=== PATIENT | male | born 1960 | race Two or more races ===

== ENCOUNTER 2022-10-16 17:48 | Emergency (ER) | payer MEDICARE, MEDICAID, SELFPAY ==
--- NOTE | ~2022-10-16 | XR_ITS ---
EXAMINATION: XR LUMBOSACRAL SPINE CLINICAL INFORMATION: Low back pain COMPARISON: None available. TECHNIQUE: Three views of the lumbosacral spine. FINDINGS: There is curvature of the lumbar spine to the left. Bone alignment is otherwise normal. No fracture or dislocation. Multilevel degenerative spondylosis. Normal disc spaces. Lower lumbar spine facet arthritis. XR/XR lumbar spine 2-3V IMPRESSION: Scoliosis and degenerative changes.
--- NOTE | ~2022-10-16 | XR_ITS ---
EXAMINATION: XR CERVICAL SPINE CLINICAL INFORMATION: Right-sided neck pain COMPARISON: None available. TECHNIQUE: 3 views of the cervical spine were obtained. FINDINGS: Bone alignment is normal. No fracture or dislocation. Multilevel degenerative spondylosis from C3-C4 to C6-C7. Disc space narrowing at C3-C4 C5-C6 and C6-C7. Prevertebral soft tissues are normal. XR/XR cervical spine 3V IMPRESSION: Degenerative changes.
--- NOTE | 2022-10-16 19:20 | ED_ITS ---
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 patient reports that he has had neck pain mostly right-sided for the last week. The pain radiates up the back of his head his pain is worse with palpation or with turning his head to the side his pain is also worse with raising his right arm over his shoulder he denies any trauma to the head or neck The patient's states that every day he carries a very heavy bag with 1 strep over on the side of the patient's pain he takes ibuprofen 800 mg with some improvement in his symptoms denies any numbness, tingling, weakness no other complaints or concerns at this time <Wilmer Garcia - Last Filed: 10/16/22 22:55> Related Data Home medications: Previous Rx's Medication Instructions Recorded methocarbamol 750 mg tablet 750 mg PO QID PRN muscle spasm #20 10/16/22 tabs <AMAYA Sebastian - Last Filed: 10/16/22 19:26> Allergies/adverse reactions: Allergies Allergy/AdvReac Type Severity Reaction Status Date / Time Penicillins Allergy Shortness Verified 10/16/22 19:23 of Breath <AMAYA Sebastian Last Filed: 10/16/22 19:26> Review of Systems Constitutional: Constitutional: Denies chills, Denies fever(s), Reports headache(s) and Denies weakness <Wilmer Garcia - Last Filed: 10/16/22 22:55> Eyes: Eyes: Denies blurry vision <Wilmer Garcia - Last Filed: 10/16/22 22:55> ENT: Denies otalgia, Reports headache(s) and Reports neck pain <Wilmer Garcia - Last Filed: 10/16/22 22:55> Cardiovascular: Cardiovascular: Denies chest pain and Denies dyspnea <Wilmer James Last Filed: 10/16/22 22:55> Respiratory: Respiratory: Denies cough and Denies dyspnea <Wilmer Jamesy - Last Filed: 10/16/22 22:55> Gastrointestinal: Gastrointestinal: Denies abdominal pain, Denies nausea and Denies vomiting <Wilmer Garcia Last Filed: 10/16/22 22:55> Musculoskeletal: Musculoskeletal: Reports back pain, Reports neck pain, Denies numbness and Denies tingling <Wilmer Garcia Last Filed: 10/16/22 22:55> Neurologic: Reports headache(s), Denies numbness, Denies tingling, Denies paresthesias, Denies tremor(s) and Denies weakness <Wilmer Garcia - Last Filed: 10/16/22 22:55> Physical Exam ED Vital Signs: Vital Signs - 24 hr 10/16/22 19:24 Temperature 97.3 F Pulse Rate 70 Respiratory Rate 16 Blood Pressure 151/87 H Pulse Oximetry 97 Oxygen Delivery Method Room Air BMI result Body Mass Index 31.2 <AMAYA Sebastian - Last Filed: 10/16/22 19:26> Vital Signs - 24 hr 10/16/22 19:24 Temperature 97.3 F Pulse Rate 70 Respiratory Rate 16 Blood Pressure 151/87 H Pulse Oximetry 97 Oxygen Delivery Method Room Air BMI result Body Mass Index 31.2 <Wilmer Garcia - Last Filed: 10/16/22 22:55> Const General: healthy appearing, comfortable, no acute distress, alert and awake <Wilmer Garcia Last Filed: 10/16/22 22:55> Nutritional Appearance: well nourished <Wilmer Garcia Last Filed: 10/16/22 22:55> Orientation/consciousness: patient oriented x3 < Last Filed: 10/16/22 22:55> HENMT Head: Yes normocephalic and Yes atraumatic < Last Filed: 10/16/22 22:55> Eyes Eyelids: Yes eyelids normal < Last Filed: 10/16/22 22:55> Conjunctivae: conjunctivae normal < Last Filed: 10/16/22 22:55> Sclerae: sclerae normal < Last Filed: 10/16/22 22:55> Corneas: corneas normal < Last Filed: 10/16/22 22:55> Pupils: Equal, round and reactive pupils present < Filed: 10/16/22 22:55> EOM: EOMs intact bilaterally < Filed: 10/16/22 22:55> Neck Other: right-sided posterior cervical tenderness without significant deformity. no C-spine tenderness or deformities < Last Filed: 10/16/22 22:55> Neck: Yes full ROM ( With some discomfort with lateral rotation to the left), No no meningeal signs and No anterior neck swelling < Last Filed: 10/16/22 22:55> Lymphatic: lymphadenopathy noted < Last Filed: 10/16/22 22:55> Resp Effort & Inspection: normal respiratory effort, able to speak in complete sentences and not labored < Last Filed: 10/16/22 22:55> Skin General skin exam: no rashes or lesions noted and elasticity normal < Last Filed: 10/16/22 22:55> Neuro General: patient oriented x3 and No no meningeal signs < Last Filed: 10/16/22 22:55> Cranial nerves: Yes CN's II-XII intact bilaterally, Yes Equal, round and reactive pupils present and Yes Bilaterally intact EOM present < Last Filed: 10/16/22 22:55> Cognition (Neuro): normal cognition <Wilmer Garcia - Last Filed: 10/16/22 22:55> Extrem Other: Moving all extremities well without any obvious deformities <Wilmer Jacoby - Last Filed: 10/16/22 22:55> Course Course Course Narrative: RME: 62-year-old male with no significant past medical history presenting to the ED complaining of right sided neck and bilateral low back pain x years worsening over the past 3 days. Reports associated urinary frequency. Also reports SOB secondary to pain + right-sided cervical paraspinal tenderness, bilateral lumbar paraspinal/MSK swelling and tenderness noted. Ambulating with steady gait X-rays, urine ordered Full HPI, ROS and PE to be performed by primary ED provider. <AMAYA Sebastian - Last Filed: 10/16/22 19:26> Medical Decision Making Medical Decision Making MDM Narrative: 62-year-old male presents for evaluation of neck pain that radiates to back with head. He has no neuro deficits. Patient likely has tension headache associated. Will treat with Toradol and discharged pacer methocarbamol. He will follow up this PCP. His symptoms have been present for 1 week, he has had no neuro deficits to warrant emergent imaging of the brain. <Wilmer Garcia - Last Filed: 10/16/22 22:55> Differential Diagnosis cervical strain Tension headache Acute headache Cervicalgia cervical radiculopathy <Wilmer Garcia - Last Filed: 10/16/22 22:55> Lab Data Labs: Lab Results 10/16/22 Range/Units 19:44 Urine Color Yellow Urine Appearance Clear Urine pH 6.5 (5.0-9.0) Ur Specific [place] >= 1.030 H (1.005-1.025) Urine Protein Trace (Neg-Trace) mg/dL Urine Glucose (UA) Negative (Negative) mg/dL Urine Ketones Negative (Negative) mg/dL Urine Blood Negative (Negative) Urine Nitrite Negative (Negative) Ur Leukocyte Esterase Negative (Negative) <AMAYA Sebastian - Last Filed: 10/16/22 19:26> Lab Results 10/16/22 Range/Units 19:44 Urine Color Yellow Urine Appearance Clear Urine pH 6.5 (5.0-9.0) Ur Specific [place] >= 1.030 H (1.005-1.025) Urine Protein Trace (Neg-Trace) mg/dL Urine Glucose (UA) Negative (Negative) mg/dL Urine Ketones Negative (Negative) mg/dL Urine Blood Negative (Negative) Urine Nitrite Negative (Negative) Ur Leukocyte Esterase Negative (Negative) <Wilmer Garcia - Last Filed: 10/16/22 22:55> Discharge Plan Discharge Clinical Impression: Cervical strain, Acute tension headache <AMAYA Sebastian - Last Filed: 10/16/22 19:26> Patient Disposition: Home, Self-Care <AMAYA Sebastian - Last Filed: 10/16/22 19:26> Instructions: Cervical Strain (ED) <AMAYA Sebastian - Last Filed: 10/16/22 19:26> Additional Instructions: you may continue use ibuprofen for your pain. your x-ray showed mild arthritis but no major abnormalities use methocarbamol for muscle spasms. This may make you sleepy, did not drink alcohol or drive after taking it you should also avoid carrying anything over 10 lb for the next week warm compresses may also help your symptoms <AMAYA Sebastian - Last Filed: 10/16/22 19:26> Prescriptions: New methocarbamol 750 mg tablet 750 mg PO QID PRN (Reason: muscle spasm) Qty: 20 0RF <AMAYA Sebastian - Last Filed: 10/16/22 19:26>
[2022-10-16 19:24] VITALS: BP 151/87; PULSE 70; RESP 16; TEMP 36.3; O2SAT 97; BMI 31.2
[2022-10-16 20:20] LABS: Appearance Urine Clear; Color Urine Yellow; Glucose Urine UA Negative (Negative); Leukocyte Esterase Urine Negative (Negative); Nitrite Urine Negative (Negative); PH 6.5 (5.0-9.0); Specific Gravity - Urine >= 1.030 (1.005-1.025); Urine Blood Negative (Negative); Urine Ketones Negative (Negative); Urine Protein Trace mg/dL (Neg-Trace)
[2022-10-16] MEDS: Ketorolac Tromethamine 30 MG/ML VIAL IM (23:40)
[2022-10-16 23:52] VITALS: BP 133/74; PULSE 59; RESP 15; TEMP 36.6; O2SAT 95
--- NOTE | 2022-10-17 00:27 | PC.NURSE ---
this rn assumed care of pt @ 2200 from waiting room. pt partner at bedside. pt medicated according to aug. pt calm and cooperative.
--- NOTE | 2022-10-17 00:27 | PC.NURSE ---
vss. pt calm and cooperative. pt ambulatory at time of discharge. pt provided with discharge packet. pt verbalized understanding of discharge plan
== END 2022-10-17 00:30 | disposition home or self-care (01) ==
PROVIDERS: Physician Assistant; Emergency Provider Internal Medicine; PCP Physician Assistant Medical
DX: S16.1XXA Strain of muscle, fascia and tendon at neck level, initial encounter (principal); X50.0XXA Overexertion from strenuous movement or load, initial encounter; G44.209 Tension-type headache, unspecified, not intractable; Y93.9 Activity, unspecified; Y92.9 Unspecified place or not applicable; Y99.9 Unspecified external cause status
CPT/HCPCS: 72040; 72100; 81003; 96372; 99284; J1885